=== PATIENT | female | born 1960 | race Caucasian/White ===

== ENCOUNTER 2018-08-29 11:26 | Emergency (ER) | payer MEDICARE, OTHER ==
[~2018-08-29] VITALS: Ht 154.9 cm; Wt 59.1 kg
[~2018-08-29 11:26] MED LIST: HYDR-4011 PO
[2018-08-29 11:33] VITALS: Ht 154.9 cm; Wt 59.1 kg
[2018-08-29] MEDS ORDERED: ONDANSETRON (ODT) 4 MG TAB ODT STA (11:59)
[2018-08-29] MEDS ORDERED: morphine 4 MG/ML VIAL IM STA (11:59)
--- NOTE | 2018-08-29 12:04 | ERD ---
ER Documentation Chief Complaint Chief Complaint right knee pain /swelling HPI 50-year-old female presents with right knee pain and swelling. This is chronic as she does have a history of arthritis and [place] [facility] [place] to go there today but her doctor was unavailable and they were unable to see her so she came here for her pain. She takes Motrin at home with no relief. No fever. She has full range of motion in the knee. ROS All systems reviewed and are negative except as per history of present illness. PMhx/Soc History of Surgery: No Anesthesia Reaction: No Hx Neurological Disorder: No Hx Respiratory Disorders: No Hx Cardiac Disorders: Yes (hld) Hx Psychiatric Problems: No Hx Miscellaneous Medical Probl: Yes (osteoarthritis) Hx Alcohol Use: No Hx Substance Use: No Hx Tobacco Use: No Smoking Status: Never smoker FmHx Family History: No diabetes Physical Exam Vitals Vital Signs Date Temp Pulse Resp B/P (MAP) Pulse Ox O2 O2 Flow FiO2 Time Delivery Rate 08/29/18 97.7 68 20 127/78 99 11:33 (94) Physical Exam Const: No acute distress Head: Atraumatic Eyes: Normal Conjunctiva ENT: Normal External Ears, Nose and Mouth. Neck: Full range of motion. No meningismus. Resp: Clear to auscultation bilaterally Cardio: Regular rate and rhythm, no murmurs Lower Extremity -right: Skin: No laceration Compartments: Soft Motor: Full active range of motion /knee/ Sensation: Intact to light touch Bones: Nontender knee/proximal tibia Joints: No effusion or laxity Pulses/Perfusion: 2+ DP, Capillary refill < 2 seconds Results 24 hrs Current Medications Medications Dose Sig/Goldy Start Time Status Last (Trade) Ordered Route PRN Stop Time Admin Dose Reason Admin Morphine 4 mg ONCE STAT 08/29/18 DC Sulfate IM 11:59 (morphine) 08/29/18 12:00 Ondansetron 4 mg ONCE STAT 08/29/18 DC HCl (Zofran ODT 11:59 Odt) 08/29/18 12:00 Procedures/MDM Patient has flareup of pain in the knee secondary to severe arthritis. She was given pain injection here and Zofran. She is discharged with a small amount of [place] and plans to follow-up with her orthopedic doctor tomorrow. Patient couns eled regarding my diagnostic impression and care plan. Prior to discharge all questions answered. Pt agrees with treatment plan and understands strict return precautions. Pt is instructed to follow up with primary care provider within 24- 48 hours. Precautionary instructions provided including instructions to return to the ER if not improving or for any worsening or changing symptoms or concerns. Departure Diagnosis: Primary Impression: Knee pain Condition: Stable JUSTIN SEAY PA-C Aug 29, 2018 12:04
[2018-08-29 12:34] VITALS: BP 117/54; PULSE 79; RESP 16
== END 2018-08-29 12:35 | disposition home or self-care (01) ==
LOC: FTE 11:26
DX: M25.561 Pain in right knee (principal)
CPT/HCPCS: 96372; 99284; J2270